=== PATIENT | female | born 1980 | race Two or more races ===

== ENCOUNTER 2019-05-27 12:06 | Emergency (ER) | payer MEDICARE, MEDICAID ==
[~2019-05-27] VITALS: Ht 157.5 cm; Wt 101.5 kg
[2019-05-27 12:29] VITALS: BP 176/94
--- NOTE | 2019-05-27 13:35 | NUR ---
Patient/Caregiver given discharge instructions and they have confirmed that they understand the instructions. Patient ambulatory with steady gait.
== END 2019-05-27 13:36 | disposition home or self-care (01) ==
LOC: ED 13:32
DX: S60.122A Contusion of left index finger with damage to nail, initial encounter (principal); X58.XXXA Exposure to other specified factors, initial encounter; Y93.89 Activity, other specified; Y92.009 Unspecified place in unspecified non-institutional (private) residence as the place of occurrence of the external cause; Y99.8 Other external cause status
CPT/HCPCS: 82962; 99283